=== PATIENT | female | born 1980 | race Caucasian/White ===

== ENCOUNTER 2021-01-16 04:36 | Emergency (ER) | payer MEDICAID, OTHER ==
[~2021-01-16] VITALS: Ht 185.4 cm; Wt 73.0 kg
[~2021-01-16 04:36] MED LIST: FERR325C PO; IBUP-779 PO; MULT-1116 PO
[2021-01-16] MEDS ORDERED: IBUPROFEN 600MG TABLET PO STA (05:08)
[2021-01-16 05:13] VITALS: BP 128/77
[2021-01-16] MEDS ORDERED: AMOX-494 MT (05:59)
[2021-01-16] MEDS ORDERED: IBUP-2029 PO (05:59)
== END 2021-01-16 06:13 | disposition home or self-care (01) ==
LOC: ER 04:36
DX: H92.03 Otalgia, bilateral (principal); K02.9 Dental caries, unspecified; Z91.010 Allergy to peanuts
CPT/HCPCS: 87070; 87430; 99283